=== PATIENT | female | born 1960 | race Caucasian/White ===

== ENCOUNTER → 2022-04-10 | Day surgery (SDC) | payer MEDICARE, OTHER ==
[2022-04-05 10:27] VITALS: BMI 27.6
[2022-04-10 09:50] VITALS: TEMP 98.2
[2022-04-10 10:28] VITALS: BP 111/64; PULSE 73; RESP 21
== END | disposition home or self-care (01) ==
LOC: JASU-ENDO 04:21
PROVIDERS: ATTEND Internal Medicine Gastroenterology
PROC: 0DBL8ZX Excision of Transverse Colon, Via Natural or Artificial Opening Endoscopic, Diagnostic (ICD-10-PCS; 2022-04-10)
PROC: 0DBP8ZX Excision of Rectum, Via Natural or Artificial Opening Endoscopic, Diagnostic (ICD-10-PCS; principal; 2022-04-10 09:00)
DX: Z12.11 Encounter for screening for malignant neoplasm of colon (principal); D12.3 Benign neoplasm of transverse colon; K62.1 Rectal polyp; K64.8 Other hemorrhoids; K57.30 Diverticulosis of large intestine without perforation or abscess without bleeding; Z86.010 Personal history of colon polyps
CPT/HCPCS: 88305-TC; 88342-TC